=== PATIENT | male | born 1995 | race African-American/Black ===

== ENCOUNTER 2020-06-11 07:59 | Observation (INO) | payer OTHER ==
[~2020-06-11] VITALS: Ht 177.8 cm; Wt 97.5 kg
[2020-06-11] MEDS ORDERED: SODIUM CHLORIDE 0.9% 1000ML 1,000 ML IV STA ×2 (08:01→09:38)
[2020-06-11 08:27] LABS: BASOPHILS % 0.5 % (0.0-1.0); EOSINOPHILS # (AUTO) 0.2 (0.0-0.4); EOSINOPHILS % 2.8 % (0.0-6.0); HEMATOCRIT 37.1 % (38.2-49.6); HEMOGLOBIN 12.6 g/dL (14.0-18.0); LYMPHOCYTES # (AUTO) 1.9 (1.0-3.2); LYMPHOCYTES % 30.1 % (18.0-39.1); MEAN CORPUSCULAR HEMOGLOBIN 30.2 pg (28-32); MONOCYTES # (AUTO) 0.7 (0.2-0.8); MONOCYTES % 10.1 % (4.4-11.3); NEUTROPHILS # (AUTO) 3.6 (2.1-6.9); NEUTROPHILS % 56.2 % (38.7-80.0); PLATELET COUNT 223 x10e3/uL (140-360); RED BLOOD COUNT 4.17 x10e6/uL (4.3-5.7); RED CELL DISTRIBUTION WIDTH 11.9 % (11.7-14.4)
[2020-06-11 09:03] LABS: ALANINE AMINOTRANSFERASE 63 IU/L (0-55); ALBUMIN 4.2 g/dL (3.5-5.0); ALBUMIN/GLOBULIN RATIO 1.6 (0.8-2.0); ALKALINE PHOSPHATASE 68 IU/L (40-150); ANION GAP 13.5 mmol/L (8-16); BLOOD UREA NITROGEN 7 mg/dL (7-26); BUN/CREATININE RATIO 9 (6-25); CALCIUM 8.4 mg/dL (8.4-10.2); CARBON DIOXIDE 26 mmol/L (22-29); CHLORIDE 106 mmol/L (98-107); EST GLOMERULAR FILTRATION RATE > 60 ML/MIN (60-); GLUCOSE 101 mg/dL (74-118); LIPASE 14 U/L (8-78); POTASSIUM 3.5 mmol/L (3.5-5.1); SODIUM 142 mmol/L (136-145)
[2020-06-11 09:19] LABS: CREATINE KINASE 8671 IU/L (30-200)
[2020-06-11 09:36] LABS: COLOR,URINE YELLOW (YELLOW)
[2020-06-11 09:37] LABS: CLARITY,URINE CLEAR (CLEAR); LEUKOCYTE ESTERASE ,URINE NEGATIVE (NEGATIVE)
[2020-06-11 09:38] LABS: BILIRUBIN,URINE NEGATIVE (NEGATIVE); KETONES,URINE NEGATIVE (NEGATIVE); NITRITE,URINE POSITIVE (NEGATIVE); PROTEIN,URINE DIPSTICK NEGATIVE (NEGATIVE); URINE UROBILINOGEN 1 mg/dL (0.2 - 1)
[2020-06-11] MEDS ORDERED: SODIUM CHLORIDE 0.9% 1000ML 1,000 ML ONE (09:42)
[2020-06-11] MEDS ORDERED: ONDANSETRON HCL INJ 2MG/ML 2ML 2 MG/ML VIAL IV PRN (09:45)
--- NOTE | 2020-06-11 09:50 | Emergency Department Note ---
History of Present Illnes History of Present Illness Chief Complaint: Genitourinary History of Present Illness This is a 25 year old male PATIENT IN FROM HOME WITH COMPLAINTS OF URINE DISCOLORATION - ORANGE; STATES THAT HE NOTICED IT THIS MORNING. PATIENT DENIES PAIN OR ANY OTHER URINARY SYMPTOMS. PATIENT ALERT AND ORIENTED, RESP EVEN AND NONLABORED, APPEARS IN NO DISTRESS. NO ABD OR BACK PAIN, NO MEDS. 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 Any updates have been documented here. Past Medical History Recent Fever: No Clinical Suspicion of Infectio: No New/Unexplained Change in Ment: No Past Medical History: None Past Surgical History: T&A Other Surgery: RIGHT KNEE SURGERY LEFT ELBOW SURGERY Social History Smoking Cessation: Current some day smoker Counseling Performed: Yes Alcohol Use: Occasional Any Illegal Drug Use: No TB Exposure/Symptoms: No Physically hurt or threatened: No Family History Family history of heart diseas: No Other Any Pre-Existing Lines (PICC,: No Review of Systems Review of Systems Constitutional: Reports no symptoms EENTM: Reports no symptoms Cardiovascular: Reports no symptoms Respiratory: Reports no symptoms Gastrointestinal: Reports no symptoms Genitourinary: Reports as per HPI, Reports other (ORANGE DISCOLORATION OF URINE) Musculoskeletal: Reports no symptoms Integumentary: Reports no symptoms Neurological: Reports no symptoms Psychological: Reports no symptoms Endocrine: Reports no symptoms Hematological/Lymphatic: Reports no symptoms Physical Exam Related Data Allergies: Coded Allergies: No Known Allergies (Unverified , 06/11/20) Triage Vital Signs Vital Signs Date Time Temp Pulse Resp B/P (MAP) Pulse Ox O2 Delivery O2 Flow Rate FiO2 06/11/20 08:04 97.3 74 18 136/79 100 Room Air Vital signs reviewed: Yes Physical Exam CONSTITUTIONAL Constitutional: Present well-developed, Present well-nourished HENT HENT: Present normocephalic, Present atraumatic, Present oropharynx clear/moist, Present nose normal HENT L/R: Present left ext ear normal, Present right ext ear normal EYES Eyes: Reports PERRL, Reports conjunctivae normal; Denies scleral icterus NECK Neck: Present ROM normal PULMONARY Pulmonary: Present effort normal, Present breath sounds normal CARDIOVASCULAR Cardiovascular: Present regular rhythm, Present heart sounds normal, Present capillary refill normal, Present normal rate GASTROINTESTINAL Abdominal: Present soft, Present nontender, Present bowel sounds normal; Absent tender GENITOURINARY Genitourinary: Present exam deferred SKIN Skin: Present warm, Present dry MUSCULOSKELETAL Musculoskeletal: Present ROM normal NEUROLOGICAL Neurological: Present alert, Present oriented x 3, Present no gross motor or sensory deficits PSYCHOLOGICAL Psychological: Present mood/affect normal, Present judgement normal Results Laboratory Result Diagram: 06/11/20 0814 06/11/20 0814 Laboratory Laboratory Tests Test 06/11/20 09:19 06/11/20 08:14 Urine Color Yellow (YELLOW) Urine Clarity Clear (CLEAR) Urine pH 7 (5 - 7) Urine Specific [place] 1.020 (1.010-1.025) Urine Protein Negative (NEGATIVE) Urine Glucose (UA) Negative (NEGATIVE) Urine Ketones Negative (NEGATIVE) Urine Blood Negative (NEGATIVE) Urine Nitrite Positive (NEGATIVE) Urine Bilirubin Negative (NEGATIVE) Urine Urobilinogen 1 mg/dL (0.2 - 1) Urine Leukocyte Esterase Negative (NEGATIVE) White Blood Count 6.41 x10e3/uL (4.8-10.8) Red Blood Count 4.17 x10e6/uL (4.3-5.7) Hemoglobin 12.6 g/dL (14.0-18.0) Hematocrit 37.1 % (38.2-49.6) Mean Corpuscular Volume 89.0 fL (81-99) Mean Corpuscular Hemoglobin 30.2 pg (28-32) Mean Corpuscular Hemoglobin Concent 34.0 g/dL (31-35) Red Cell Distribution Width 11.9 % (11.7-14.4) Platelet Count 223 x10e3/uL (140-360) Neutrophils (%) (Auto) 56.2 % (38.7-80.0) Lymphocytes (%) (Auto) 30.1 % (18.0-39.1) Monocytes (%) (Auto) 10.1 % (4.4-11.3) Eosinophils (%) (Auto) 2.8 % (0.0-6.0) Basophils (%) (Auto) 0.5 % (0.0-1.0) Neutrophils # (Auto) 3.6 (2.1-6.9) Lymphocytes # (Auto) 1.9 (1.0-3.2) Monocytes # (Auto) 0.7 (0.2-0.8) Eosinophils # (Auto) 0.2 (0.0-0.4) Basophils # (Auto) 0.0 (0.0-0.1) Absolute Immature Granulocyte (auto 0.02 x10e3/uL (0-0.1) Sodium Level 142 mmol/L (136-145) Potassium Level 3.5 mmol/L (3.5-5.1) Chloride Level 106 mmol/L (98-107) Carbon Dioxide Level 26 mmol/L (22-29) Anion Gap 13.5 mmol/L (8-16) Blood Urea Nitrogen 7 mg/dL (7-26) Creatinine 0.80 mg/dL (0.72-1.25) Estimat Glomerular Filtration Rate > 60 ML/MIN (60-) BUN/Creatinine Ratio 9 (6-25) Glucose Level 101 mg/dL (74-118) Calcium Level 8.4 mg/dL (8.4-10.2) Total Bilirubin 0.5 mg/dL (0.2-1.2) Aspartate Amino Transf (AST/SGOT) 92 IU/L (5-34) Alanine Aminotransferase (ALT/SGPT) 63 IU/L (0-55) Alkaline Phosphatase 68 IU/L (40-150) Creatine Kinase 8671 IU/L (30-200) Creatine Kinase MB 7.80 ng/mL (0-5.0) Troponin I 0.011 ng/mL (0-0.300) Total Protein 6.9 g/dL (6.5-8.1) Albumin 4.2 g/dL (3.5-5.0) Globulin 2.7 g/dL (2.3-3.5) Albumin/Globulin Ratio 1.6 (0.8-2.0) Lipase 14 U/L (8-78) Laboratory Tests Test 06/11/20 09:19 06/11/20 08:14 Urine Color Yellow (YELLOW) Urine Clarity Clear (CLEAR) Urine pH 7 (5 - 7) Urine Specific [place] 1.020 (1.010-1.025) Urine Protein Negative (NEGATIVE) Urine Glucose (UA) Negative (NEGATIVE) Urine Ketones Negative (NEGATIVE) Urine Blood Negative (NEGATIVE) Urine Nitrite Positive (NEGATIVE) Urine Bilirubin Negative (NEGATIVE) Urine Urobilinogen 1 mg/dL (0.2 - 1) Urine Leukocyte Esterase Negative (NEGATIVE) White Blood Count 6.41 x10e3/uL (4.8-10.8) Red Blood Count 4.17 x10e6/uL (4.3-5.7) Hemoglobin 12.6 g/dL (14.0-18.0) Hematocrit 37.1 % (38.2-49.6) Mean Corpuscular Volume 89.0 fL (81-99) Mean Corpuscular Hemoglobin 30.2 pg (28-32) Mean Corpuscular Hemoglobin Concent 34.0 g/dL (31-35) Red Cell Distribution Width 11.9 % (11.7-14.4) Platelet Count 223 x10e3/uL (140-360) Neutrophils (%) (Auto) 56.2 % (38.7-80.0) Lymphocytes (%) (Auto) 30.1 % (18.0-39.1) Monocytes (%) (Auto) 10.1 % (4.4-11.3) Eosinophils (%) (Auto) 2.8 % (0.0-6.0) Basophils (%) (Auto) 0.5 % (0.0-1.0) Neutrophils # (Auto) 3.6 (2.1-6.9) Lymphocytes # (Auto) 1.9 (1.0-3.2) Monocytes # (Auto) 0.7 (0.2-0.8) Eosinophils # (Auto) 0.2 (0.0-0.4) Basophils # (Auto) 0.0 (0.0-0.1) Absolute Immature Granulocyte (auto 0.02 x10e3/uL (0-0.1) Sodium Level 142 mmol/L (136-145) Potassium Level 3.5 mmol/L (3.5-5.1) Chloride Level 106 mmol/L (98-107) Carbon Dioxide Level 26 mmol/L (22-29) Anion Gap 13.5 mmol/L (8-16) Blood Urea Nitrogen 7 mg/dL (7-26) Creatinine 0.80 mg/dL (0.72-1.25) Estimat Glomerular Filtration Rate > 60 ML/MIN (60-) BUN/Creatinine Ratio 9 (6-25) Glucose Level 101 mg/dL (74-118) Calcium Level 8.4 mg/dL (8.4-10.2) Total Bilirubin 0.5 mg/dL (0.2-1.2) Aspartate Amino Transf (AST/SGOT) 92 IU/L (5-34) Alanine Aminotransferase (ALT/SGPT) 63 IU/L (0-55) Alkaline Phosphatase 68 IU/L (40-150) Creatine Kinase 8671 IU/L (30-200) Creatine Kinase MB 7.80 ng/mL (0-5.0) Troponin I 0.011 ng/mL (0-0.300) Total Protein 6.9 g/dL (6.5-8.1) Albumin 4.2 g/dL (3.5-5.0) Globulin 2.7 g/dL (2.3-3.5) Albumin/Globulin Ratio 1.6 (0.8-2.0) Lipase 14 U/L (8-78) Lab results reviewed: Yes Assessment & Plan Medical Decision Making MDM DISCOLORATION OF URINE - NORMAL EXAM, NO SCLERAL ICTERUS, NO ABD TENDERNESS - CHECK CBC, CHEM, UA/CX, CARDIAC ENZYMES - EVAL FOR PAINLESS HYPERBILIRUBINEMIA, RHABDOMYOLYSIS, UTI, RENAL INSUFF Reassessment Reassessment ADMIT TO DR ALMANZAR Assessment & Plan Final Impression: (1) Rhabdomyolysis Depart Disposition: ADMITTED Last Vital Signs Date Time Temp Pulse Resp B/P (MAP) Pulse Ox O2 Delivery O2 Flow Rate FiO2 06/11/20 09:41 98.4 72 18 136/82 100 Room Air Medications in the ED Sodium Chloride 1,000 ml @ 0 mls/hr Q0M STAT IV Last administered on 06/11/20at 08:38; Admin Dose 999 MLS/HR; Start 06/11/20 at 08:01; Stop 06/11/20 at 08:03; Status DC Sodium Chloride 1,000 ml @ STK-MED ONCE .ROUTE ; Start 10/9/20 at 09:42; Stop 06/11/20 at 09:36; Status DC Ondansetron HCl 4 mg Q4H PRN IV NAUSEA AND VOMITING; Start 06/11/20 at 09:45; Stop 07/11/20 at 09:44; Status UNV Sodium Chloride 1,000 ml @ 200 mls/hr Q5H IV ; Start 06/11/20 at 09:45; Stop 07/11/20 at 09:44; Status UNV Sodium Chloride 1,000 ml @ 0 mls/hr Q0M STAT IV ; Start 06/11/20 at 09:38; Stop 06/11/20 at 09:43; Status DC YOUNG HEARN MD Jun 11, 2020 09:50
[2020-06-11] MEDS: SODIUM CHLORIDE 0.9% 1000ML 1,000 ML IV SCH ×4 (10:43→22:57)
[2020-06-11 10:47] LABS: BACTERIA,URINE FEW /HPF; EPITHELIAL CELLS,URINE FEW /LPF; RBC,URINE 0-5 /HPF (0-5); WBC,URINE (MAN) 0-5 /HPF (0-5)
--- NOTE | 2020-06-11 11:03 | NUR ---
RECEIVED TO [facility], DENIES PAIN AT THIS TIME, UPDATED ON POC VOICED UNDERSTANDING, IVF INFUSING TO R AC 20G NO SS OF INFILTRATION NOTED, NO OTHER CO VOICED CALL LIGHT IN REACH WILL CONTINUE TO MONITOR
[2020-06-11 11:23] VITALS: BP 139/95
[2020-06-11 11:53] VITALS: BP 139/95
[2020-06-11 15:38] VITALS: BP 139/88
--- NOTE | 2020-06-11 16:18 | History and Physical ---
The patient placed on observation. Observation date, June 11, 2020. CHIEF COMPLAINT: Dark urine and muscle aches. HISTORY OF PRESENT ILLNESS: The patient is a 25-year-old male, went on a heavy drinking on his day break, Sunday and Sunday. He usually does not do that in the past, but he did at this time. He came in with muscle ache and pain along with dark urine. The patient found to have a CK level of 8671. The patient is otherwise stable. No chest pain. No abdominal pain. No headaches or visual changes. No neurological symptoms. No blood in the urine. The patient is otherwise stable. The patient did receive IV fluid boluses. The patient is comfortable. Repeat lab work pending. PAST MEDICAL HISTORY: Noncontributory. PAST SURGICAL HISTORY: Noncontributory. SOCIAL HISTORY: The patient does smoke cigarettes and also marijuana at time. He is a moderate alcoholic drinker. ALLERGIES: NO KNOWN ALLERGIES. HOME MEDICATIONS: None. PHYSICAL EXAMINATION: VITAL SIGNS: Temperature is 98, blood pressure 139/95, pulse rate 69, and respirations 18. GENERAL: The patient is not in acute distress. He is awake. HEENT: Normocephalic and atraumatic. He is anicteric. NECK: Supple grossly. PULMONARY: Diminished breath sounds without any wheezing or rales. CARDIOVASCULAR: S1 and S2. Regular rate and rhythm. ABDOMEN: Soft and unremarkable. EXTREMITIES: No gross cyanosis or edema. NEUROLOGIC: No gross focal deficit. LABORATORY DATA: Sodium is 142, potassium 3.5, chloride 106, bicarb 26, BUN 7, creatinine 0.8, and glucose 101. WBC 6.4, hemoglobin 12.6, hematocrit 37.1, and platelets is 223. AST is 92, ALT is 63, total bilirubin 0.5, and alkaline phosphatase 68. IMPRESSION: 1. Rhabdomyolysis, CK of 8671. 2. Heavy alcohol consumption in the short period of time. 3. Myalgia, resolved. 4. Dehydration, improving with IV fluid rehydration. PLAN: Repeat CK level on IV rehydration. If the patient do better, the patient may be able to go home. I advised the patient to rehydrate himself with fluid intake. I advised the patient not to drink heavily in a short period of time that may contribute to the patient's symptoms and rhabdomyolysis. We will monitor the CK level and we will go from the results. MD BHAVANA Colón/EARL /[id number]
[2020-06-11 16:59] LABS: CREATINE KINASE MB 7.9 ng/mL (0-5.0)
[2020-06-11 20:00] VITALS: BP 132/91
[2020-06-11 21:52] LABS: CREATINE KINASE MB 6.8 ng/mL (0-5.0)
[2020-06-12] VITALS: BP 113/71
[2020-06-12] MEDS: SODIUM CHLORIDE 0.9% 1000ML 1,000 ML IV SCH (03:56)
[2020-06-12 04:00] VITALS: BP 129/74
--- NOTE | 2020-06-12 07:12 | NUR ---
REPORT GIVEN TO DAYSHIFT NURSE. ALERT AND ORIENTED. RESTING IN BED. NO SIGNS IV INFILTRATION. BED LOCKED AND IN LOW POSITION. CALL LIGHT WITHIN REACH.
[2020-06-12 07:26] LABS: CREATINE KINASE MB 5.6 ng/mL (0-5.0)
[2020-06-12 07:32] VITALS: BP 124/86
[2020-06-12 08:28] VITALS: BP 124/86
--- NOTE | 2020-06-12 10:53 | NUR ---
Patient received discharge order from Dr. Lee. Patient was given discharge instructions, education, and follow up education. Patient IV removed at 1035 and covered with a C/D/I dressing. Patient refused wheelchair and walked to front door with no issues or complaints.
--- NOTE | 2020-06-12 12:01 | Discharge Summary ---
CHIEF COMPLAINT: Rhabdomyolysis, muscle ache. HOSPITAL COURSE: This 25-year-old male with a two day significant amount of alcohol consumption and apparently came in because of muscle ache and very dark urine. The patient apparently has rhabdomyolysis. His CK level was elevated 8671. The patient's urinalysis show otherwise unremarkable. The patient's chemistry panel and renal function is stable. BUN and creatinine were 7 and 0.8. His AST was 92, ALT was 63, alkaline phosphatase is 68. CK level was 8671. With rehydration, it went down to 6783. The patient is otherwise stable. He has no pain. He is urinating well. His urine color is back to normal. The patient is stable. I would like to for patient to go home today and follow up with his family physician for repeated liver enzyme tests along with CK level. The patient is otherwise stable. He is asymptomatic. Discussed with the patient regarding no drinking and weightlifting for the next week or so for his body to heal. No supplement anything that could have exacerbate his rhabdomyolysis. The patient expressed understanding. Again, he will follow up with his family physician for repeat lab work. The patient is otherwise stable. He will return to work on his normal schedule, next week. MD BHAVANA Colón/EARL /[id number]
== END 2020-06-12 10:43 | disposition home or self-care (01) ==
LOC: ER 08:19 → ERHOLD 09:38 → MED/SURG 10:42
PROVIDERS: ADMIT Internal Medicine; ATTEND Internal Medicine
DX: M62.82 Rhabdomyolysis (principal); E86.0 Dehydration; Z72.0 Tobacco use; F12.920 Cannabis use, unspecified with intoxication, uncomplicated; F10.10 Alcohol abuse, uncomplicated; Z11.59 Encounter for screening for other viral diseases
CPT/HCPCS: 36415 ×2; 80053; 81001; 82550 ×2; 82553 ×2; 83690; 84484 ×2; 85025; 87086; 96361; 99284; G0378 ×2; J7030 ×2; U0002